=== PATIENT | male | born 1990 ===

== ENCOUNTER 2017-12-27 18:08 | Emergency (ER) | payer OTHER ==
[2017-12-27 18:15] VITALS: BP 117/75; PULSE 78; RESP 18; TEMP 97.9; O2SAT 100; BMI 24.4
[2017-12-27] MEDS ORDERED: Tmp-Smz 800 mg-160 mg DS Tab PO STA (18:34)
--- NOTE | 2017-12-27 18:54 | ED PDOC ---
Arrival/HPI - General Chief Complaint: Abnormal Skin Integrity Time Seen by Provider: 12/27/17 18:34 Historian: Patient - History of Present Illness Narrative History of Present Illness (Text): 12/27/17 18:50 27yo male with no past medical history who present with 2days history of right sided jaw/chin pain/swelling. states he drained it and then it became swollen and painful. Deneis fever, chills, nausea, vomiting, any other complaint. Past Medical History - Provider Review Nursing Documentation Reviewed: Yes - Psychiatric Hx Substance Use: No Family/Social History - Physician Review Nursing Documentation Reviewed: Yes Family/Social History: Unknown Family HX Smoking Status: Current Some Days Smoker Hx Alcohol Use: No Hx Substance Use: No Allergies/Home Meds Allergies/Adverse Reactions: Allergies No Known Allergies Allergy (Verified 12/27/17 18:15) Review of Systems - Physician Review All systems were reviewed & negative as marked: Yes - Review of Systems Constitutional: Normal Eyes: Normal ENT: Normal Respiratory: Normal Cardiovascular: Normal Gastrointestinal: Normal Genitourinary Male: Normal Musculoskeletal: Normal Skin: Abscess (Right sided jaw/chin) Neurological: Normal Endocrine: Normal Hemo/Lymphatic: Normal Psychiatric: Normal Physical Exam Vital Signs Reviewed: Yes Vital Signs Temp Pulse Resp BP Pulse Ox 12/27/17 18:12 97.9 F 78 18 117/75 100 Temperature: Afebrile Blood Pressure: Normal Pulse: Regular Respiratory Rate: Normal Appearance: Positive for: Well-Appearing, Non-Toxic, Comfortable Pain Distress: None Mental Status: Positive for: Alert and Oriented X 3 - Systems Exam Head: Present: Atraumatic, Normocephalic Pupils: Present: PERRL Extroacular Muscles: Present: EOMI Conjunctiva: Present: Normal Mouth: Present: Moist Mucous Membranes Neck: Present: Normal Range of Motion Respiratory/Chest: Present: Clear to Auscultation, Good Air Exchange. No: Respiratory Distress, Accessory Muscle Use Cardiovascular: Present: Regular Rate and Rhythm, Normal S1, S2. No: Murmurs Abdomen: No: Tenderness, Distention, Peritoneal Signs Back: Present: Normal Inspection Upper Extremity: Present: Normal Inspection. No: Cyanosis, Edema Lower Extremity: Present: Normal Inspection. No: Edema Neurological: Present: GCS=15, CN II-XII Intact, Speech Normal Skin: Present: Warm, Dry, Normal Color, Abscess (Approximately 2.0 x 2.0cm area of induration with central opening noted to right jaw/chin area. No overlaying cellulitis. No crepitus. ). No: Rashes Psychiatric: Present: Alert, Oriented x 3, Normal Insight, Normal Concentration Medical Decision Making - Medication Orders Current Medication Orders: Discontinued Medications Cephalexin Monohydrate (Keflex) 500 mg PO STAT STA PRN Reason: Protocol Stop: 12/27/17 18:35 Ibuprofen (Motrin Tab) 600 mg PO STAT STA Stop: 12/27/17 18:36 Trimethoprim/Sulfamethoxazole (Bactrim Ds Tab) 1 tab PO STAT STA PRN Reason: Protocol Stop: 12/27/17 18:35 Disposition/Present on Arrival - Present on Arrival Any Indicators Present on Arrival: No History of DVT/PE: No History of Uncontrolled Diabetes: No Urinary Catheter: No History of Decub. Ulcer: No History Surgical Site Infection Following: None - Disposition Have Diagnosis and Disposition been Completed?: Yes Diagnosis: Folliculitis Disposition: HOME/ ROUTINE Disposition Time: 18:55 Patient Plan: Discharge Condition: STABLE Discharge Instructions (ExitCare): Folliculitis (DC) Additional Instructions: Follow up with your doctor Return to Emergency department for any new or worsening symptoms Prescriptions: Cephalexin [Keflex] 500 mg PO QID #28 capsule Ibuprofen [Motrin Tab] 600 mg PO Q6 #20 tab Sulfamethoxazole/Trimethoprim [Bactrim DS 800 mg-160 mg] 1 tab PO BID #14 tab Referrals: Sarai Coreas MD [Staff Provider] - Follow up with primary
== END 2017-12-27 19:15 | disposition home or self-care (01) ==
LOC: ED 18:08
DX: L73.9 Follicular disorder, unspecified (principal)